=== PATIENT | male | born 1975 ===

== ENCOUNTER → 2024-09-29 | Outpatient (CLI) | payer OTHER ==
[~2024-09-29] MED LIST: ASPI-1450 PO; ATOR10TA PO; BRIM5DRO9 OD; CAPS60CR3 TP; DORZ10DR32 OD; EMPA25TA3 PO; HYPR15DR23 OU; LEVAHFA IH; LISI-892 PO; METF-1211 PO; MOME13HF9 PO; NETA2.5D OD; PRED5DRO25 OD; SODI15DR8 OU; SULI150T PO; XALA2.5OS OD; XALA2.5OS OU
== END | disposition home or self-care (01) ==
LOC: TELEHEALTH 10:52
PROVIDERS: ATTEND Internal Medicine
DX: R07.89 Other chest pain (principal); E11.9 Type 2 diabetes mellitus without complications; E78.5 Hyperlipidemia, unspecified; J45.20 Mild intermittent asthma, uncomplicated; Z79.51 Long term (current) use of inhaled steroids; Z79.82 Long term (current) use of aspirin; Z79.84 Long term (current) use of oral hypoglycemic drugs; Z79.899 Other long term (current) drug therapy; Z86.79 Personal history of other diseases of the circulatory system; Z87.820 Personal history of traumatic brain injury
CPT/HCPCS: Q3014